=== PATIENT | female | born 1995 | race Caucasian/White ===

== ENCOUNTER 2017-05-20 11:14 | Emergency (ER) | payer BC ==
[~2017-05-20] VITALS: Ht 160 cm; Wt 60.0 kg
[~2017-05-20 11:14] MED LIST: BCPILLS PO; LISD50CA4 PO
[2017-05-20 11:19] VITALS: TEMP 36.9; Ht 160 cm; Wt 60.0 kg
[2017-05-20] MEDS ORDERED: IUD'IUD (11:45)
[2017-05-20] MEDS ORDERED: KETOROLAC TROMETHAMINE 30 MG/ML VIAL IV STA (11:49)
[2017-05-20] MEDS ORDERED: OPTIRAY 320 IV PRN (12:00)
[2017-05-20 12:09] LABS: BASO % 0.2 %; BASO ABS # 0.02 K/uL (0-0.2); COMPLETE YES; EOS % 0.3 %; HEMATOCRIT 46.6 % (37-47); IG% 0.3 %; LYMPH % 16.4 %; LYMPH ABS # 1.55 K/uL (1.2-3.4); MEAN CELL VOLUME 91.2 fL (80-100); MEAN CORPUSCULAR HEMOGLOBIN 30.3 pg (25-34); MEAN CORPUSCULAR HGB CONC 33.3 g/dl (32-36); MEAN PLATELET VOLUME 10.4 fL (7.4-10.4); MONO % 5.2 %; NEUT % 77.6 %; PLATELET COUNT 331 K/uL (130-400); RED BLOOD COUNT 5.11 M/uL (4.2-5.4); WHITE BLOOD COUNT 9.47 K/uL (4.8-10.8)
[2017-05-20 12:13] VITALS: O2SAT 100
[2017-05-20 12:17] LABS: ALT/SGPT 35 U/L (12-78); BLOOD UREA NITROGEN 12 mg/dl (7-18); CALCIUM 9.7 mg/dl (8.5-10.1); CARBON DIOXIDE 28 mmol/L (21-32); CHLORIDE 105 mmol/L (98-107); CREATININE 0.82 mg/dl (0.60-1.20); GLUCOSE 90 mg/dl (70-99); POTASSIUM 4.1 mmol/L (3.5-5.1); SODIUM 140 mmol/L (136-145)
[2017-05-20 12:20] LABS: INR 0.9 (0.9-1.1); PARTIAL THROMBOPLASTIN RATIO 1.1; PROTHROMBIN TIME (PATIENT) 10.1 SECONDS (9.0-12.0)
[2017-05-20 12:31] LABS: ALKALINE PHOSPHATASE 70 U/L (45-117); AST/SGOT 48 U/L (15-37)
--- NOTE | 2017-05-20 14:04 | DIAGNOSTIC IMAGING REPORT ---
CHEST CTA for PULMONARY ARTERIES CT DOSE: 177.82 mGy.cm HISTORY: Atypical chest pain. TECHNIQUE: Multiaxial CT images of the chest were performed following the intravenous administration of contrast to evaluate the pulmonary arteries. Maximal intensity projection images were also obtained. A dose lowering technique was utilized adhering to the principles of ALARA. COMPARISON STUDY: None. FINDINGS: Mild motion artifact. There is a normal caliber thoracic aorta with no evidence for dissection. There is no evidence for pulmonary embolus. No pleural effusions. No pneumothorax. The liver and spleen are unremarkable. No mediastinal or hilar lymphadenopathy. The central airways are patent. The lungs are clear. IMPRESSION: No evidence for pulmonary embolus. Electronically signed by: Shaun Huizar M.D. 05/20/2017 2:02 PM Dictated Date/Time: 05/20/2017 1:42 PM
--- NOTE | 2017-05-20 14:18 | EMERGENCY ROOM VISIT NOTE ---
History Report prepared by Izabel: Linda Vu Under the Supervision of: Dr. Vinayak Nuñez D.O. First contact with patient: 11:34 Chief Complaint: REFERRED BY DOCTOR Stated Complaint: BLOOD CLOT ON SIDE/ABD.-REFERRED BY [facility] History of Present Illness The patient is a 22 year old female who presents to the Emergency Room with complaints of persistent abdominal pain that began 1 week ago. She currently rates her discomfort as a 7/10 in severity. The patient states that today she presented to [facility] for right sided abdominal pain. She states that she has noticed increased pain with deep inspiration and brisk walking. The patient states that [facility] found that her d-dimer was elevated, noting that she was referred to the emergency department for further work up. She denies any increased pain with eating. The patient states that her roommate was recently sick with a cold, but denies any personal recent illness. She reports that she just had an IUD placed and states that she has been off control since September. The patient states that she had the IUD placed on April 29. She states that she has been spotting since the IUD was placed. The patient denies any shortness of breath, nausea, vomiting, or pain in swelling in her legs. She denies any family history of blood clots. The patient denies any recent long trips, surgeries, or recent injuries. Source of History: patient Onset: 1 week ago Position: abdomen Symptom Intensity: 7/10 Timing: other (persistent) Modifying Factors (Worsening): other (brisk walking and deep inspiration) Associated Symptoms: No SOB, No nausea, No vomiting Review of Systems See HPI for pertinent positives & negatives. A total of 10 systems reviewed and were otherwise negative. Past Medical & Surgical No active medical problems stated. Family History No pertinent family history stated. Social History Smoking Status: Never Smoker Alcohol Use: occasionally Drug Use: none Marital Status: single Housing Status: lives with roommate Occupation Status: [employer] Current/Historical Medications Scheduled Lisdexamfetamine Dimesylate (Vyvanse), 50 MG PO DAILY Miscellaneous Medications Iud's (Paragard Intrauterine Utility Bagger) Allergies Coded Allergies: No Known Allergies (Unverified , 05/20/17) Physical Exam Vital Signs Date Time Temp Pulse Resp B/P (MAP) Pulse Ox O2 Delivery O2 Flow Rate FiO2 05/20/17 14:57 124 16 131/79 99 05/20/17 12:42 114 16 141/89 99 Room Air 05/20/17 12:13 123 22 142/93 100 Room Air 05/20/17 12:13 100 Room Air 05/20/17 12:12 108 05/20/17 11:19 36.9 95 16 135/82 98 Physical Exam CONSTITUTIONAL/VITAL SIGNS: Reviewed / noted above. GENERAL: Non-toxic in appearance. INTEGUMENTARY: Warm, dry, and [place]. HEAD: Normocephalic. EYES: without scleral icterus or trauma. ENT/OROPHARYNX: clear and moist. LYMPHADENOPATHY/NECK: Is supple without lymphadenopathy or meningismus. RESPIRATORY: Lungs clear and equal. CARDIOVASCULAR: Regular rate and rhythm. GI/ABDOMEN: Soft and nontender. No organomegaly or pulsatile mass. No rebound or guarding. Normal bowel sounds. EXTREMITIES: Warm and well perfused. BACK: No CVA tenderness. NEUROLOGICAL: Intact without focal deficits. PSYCHIATRIC: normal affect. MUSCULOSKELETAL: Normally developed with good muscle tone. Medical Decision & Procedures ER Provider Diagnostic Interpretation: CT results as stated below per my review and radiologist interpretation: CHEST CTA for PULMONARY ARTERIES CT DOSE: 177.82 mGy.cm HISTORY: Atypical chest pain. TECHNIQUE: Multiaxial CT images of the chest were performed following the intravenous administration of contrast to evaluate the pulmonary arteries. Maximal intensity projection images were also obtained. A dose lowering technique was utilized adhering to the principles of ALARA. COMPARISON STUDY: None. FINDINGS: Mild motion artifact. There is a normal caliber thoracic aorta with no evidence for dissection. There is no evidence for pulmonary embolus. No pleural effusions. No pneumothorax. The liver and spleen are unremarkable. No mediastinal or hilar lymphadenopathy. The central airways are patent. The lungs are clear. IMPRESSION: No evidence for pulmonary embolus. Electronically signed by: Shaun Huizar M.D. 05/20/2017 2:02 PM Dictated Date/Time: 05/20/2017 1:42 PM Laboratory Results 05/20/17 11:35 Red Blood Count 5.11, Mean Corpuscular Volume 91.2, Mean Corpuscular Hemoglobin 30.3, Mean Corpuscular Hemoglobin Concent 33.3, Mean Platelet Volume 10.4, Neutrophils (%) (Auto) 77.6, Lymphocytes (%) (Auto) 16.4, Monocytes (%) (Auto) 5.2, Eosinophils (%) (Auto) 0.3, Basophils (%) (Auto) 0.2, Neutrophils # (Auto) 7.35, Lymphocytes # (Auto) 1.55, Monocytes # (Auto) 0.49, Eosinophils # (Auto) 0.03, Basophils # (Auto) 0.02 05/20/17 11:35 Test 05/20/17 11:35 White Blood Count 9.47 K/uL (4.8-10.8) Red Blood Count 5.11 M/uL (4.2-5.4) Hemoglobin 15.5 g/dL (12.0-16.0) Hematocrit 46.6 % (37-47) Mean Corpuscular Volume 91.2 fL (80-100) Mean Corpuscular Hemoglobin 30.3 pg (25-34) Mean Corpuscular Hemoglobin Concent 33.3 g/dl (32-36) Platelet Count 331 K/uL (130-400) Mean Platelet Volume 10.4 fL (7.4-10.4) Neutrophils (%) (Auto) 77.6 % Lymphocytes (%) (Auto) 16.4 % Monocytes (%) (Auto) 5.2 % Eosinophils (%) (Auto) 0.3 % Basophils (%) (Auto) 0.2 % Neutrophils # (Auto) 7.35 K/uL (1.4-6.5) Lymphocytes # (Auto) 1.55 K/uL (1.2-3.4) Monocytes # (Auto) 0.49 K/uL (0.11-0.59) Eosinophils # (Auto) 0.03 K/uL (0-0.5) Basophils # (Auto) 0.02 K/uL (0-0.2) RDW Standard Deviation 41.8 fL (36.4-46.3) RDW Coefficient of Variation 12.5 % (11.5-14.5) Immature Granulocyte % (Auto) 0.3 % Immature Granulocyte # (Auto) 0.03 K/uL (0.00-0.02) Prothrombin Time 10.1 SECONDS (9.0-12.0) Prothromb Time International Ratio 0.9 (0.9-1.1) Activated Partial Thromboplast Time 29.1 SECONDS (21.0-31.0) Partial Thromboplastin Ratio 1.1 Anion Gap 7.0 mmol/L (3-11) Est Creatinine Clear Calc Drug Dose 90.5 ml/min Estimated GFR () 119.4 Estimated GFR (Non- 103.0 BUN/Creatinine Ratio 14.0 (10-20) Calcium Level 9.7 mg/dl (8.5-10.1) Total Bilirubin 0.3 mg/dl (0.2-1) Direct Bilirubin 0.1 mg/dl (0-0.2) Aspartate Amino Transf (AST/SGOT) 48 U/L (15-37) Alanine Aminotransferase (ALT/SGPT) 35 U/L (12-78) Alkaline Phosphatase 70 U/L (45-117) Total Creatine Kinase 1219 U/L (26-192) Creatine Kinase MB 0.5 ng/ml (0.5-3.6) Creatine Kinase MB Ratio 0.0 (0-3.0) Troponin I < 0.015 ng/ml (0-0.045) Total Protein 7.9 gm/dl (6.4-8.2) Albumin 4.0 gm/dl (3.4-5.0) Lipase 177 U/L (73-393) Laboratory results as stated above per my review. Medications Administered Medications (Trade) Dose Ordered Sig/Rajeev Route Start Time Stop Time Status Last Admin Dose Admin Ketorolac Tromethamine (Toradol Inj) 30 mg NOW STAT IV 05/20/17 11:49 05/20/17 11:53 DC 05/20/17 12:43 30 MG ECG Indication: abdominal pain Rate (beats per minute): 108 Rhythm: sinus tachycardia Findings: no acute ischemic change, no ectopy ED Course 1142: Previous medical records were reviewed. The patient was evaluated in room B2. A complete history and physical examination was performed. 1149: Ordered Toradol Inj 30 mg IV. 1420: I reevaluated the patient and she is doing well. I discussed the exam findings with her and I discussed the treatment plan. She verbalized complete understanding and agreement. She is ready to go home. Medical Decision Differentials considered include acute myocardial infarction, acute coronary syndrome, myocarditis, pericarditis, pericardial effusions /tamponade, esophageal perforation, thoracic aortic dissection, pulmonary embolism, pneumonia, pneumothorax, pancreatitis, shingles, acute cholecystitis, and perforated abdominal viscus. This is a 22-year-old female who presents to the ED with a chief complaint of right upper abdominal/right lower chest wall pain. The patient states that her symptoms are worse with deep breathing. This started about a week ago after she was doing some exercises climbing stairs. The patient thought that she had a side stitch and that it would go away but it has not gone away. She has had this in the past and it has lasted up to 3 days. She states that it has never last this long. The patient reports no fevers, cough, nausea, vomiting, abdominal pains or other symptoms. She was seen at [facility] and had a d-dimer that was positive. She was referred here for this. The possible reason for her elevated d-dimer is that she had a IUD placed the end of last month and she has been having some spotting since. She was sent here for CT scan of her chest to rule out PE. Blood work reveals a normal CBC, complete metabolic panel and troponin. Total CK is elevated likely due to recent exercise. EKG shows a sinus tach at a rate of 108. CT did not show any evidence of PE or other acute abnormality. She was told results. She was given IV Toradol for pain. She was discharged. Medication Reconcilliation Current Medication List: was personally reviewed by me Blood Pressure Screening Patient's blood pressure: Elevated blood pressure Blood pressure disposition: Elevated BP felt to be situational, Did not require urgent referral Impression Primary Impression: Right-sided chest wall pain Additional Impression: Pleurisy Scribe Attestation The scribe's documentation has been prepared under my direction and personally reviewed by me in its entirety. I confirm that the note above accurately reflects all work, treatment, procedures, and medical decision making performed by me. Departure Information Dispostion Home / Self-Care Referrals No Doctor, Assigned (PCP) Forms HOME CARE DOCUMENTATION FORM, IMPORTANT VISIT INFORMATION, WORK / SCHOOL INSTRUCTIONS Patient Instructions My [facility] Additional Instructions Your symptoms are consistent with a pleurisy or a musculoskeletal cause for your pain. Take Tylenol or Motrin as needed for discomfort. Follow-up with your doctor for further care and evaluation in 1-2 days. Return to the emergency department for worsening or new symptoms or any concerns. You have been examined and treated today on an emergency basis only. This is not a substitute for, or an effort to provide, complete comprehensive medical care. It is impossible to recognize and treat all injuries or illnesses in a single emergency department visit. It is therefore important that you follow up closely with your doctor. Call as soon as possible for an appointment. Problem Qualifiers
[2017-05-20 14:57] VITALS: BP 131/79; PULSE 124; O2SAT 99
== END 2017-05-20 14:58 | disposition home or self-care (01) ==
LOC: C.EDB 11:16
DX: R07.89 Other chest pain (principal); R09.1 Pleurisy; Z97.5 Presence of (intrauterine) contraceptive device; Z79.899 Other long term (current) drug therapy

== ENCOUNTER 2017-05-28 01:21 | Emergency (ER) | payer BC ==
[~2017-05-28] VITALS: Ht 160 cm; Wt 59.1 kg
[~2017-05-28 01:21] MED LIST changes: -BCPILLS PO; +IUD'IUD
[2017-05-28 01:26] VITALS: TEMP 36.6; Ht 160 cm; Wt 59.1 kg
[2017-05-28] MEDS ORDERED: ONDANSETRON INJ 2 MG/ML 2 ML VIAL IV STA (01:44)
[2017-05-28] MEDS ORDERED: SODIUM CHLORIDE 0.9% 1000ML 1,000 ML IV ONE (01:45)
[2017-05-28 02:48] LABS: URINE APPEARANCE CLEAR (CLEAR); URINE BILIRUBIN NEG (NEG); URINE COLOR YELLOW; URINE NITRITE NEG (NEG); URINE PH 5.5 (4.5-7.5); URINE SPECIFIC GRAVITY 1.016 (1.000-1.030); UROBILINOGEN NEG (NEG); ZZUR CULT IF INDIC CLEAN CATCH NO
[2017-05-28 02:49] LABS: MANUAL MICROSCOPIC REQUIRED? NO; REVIEW REQ? NO
[2017-05-28 03:00] LABS: POTASSIUM 3.8 mmol/L (3.5-5.1)
[2017-05-28] MEDS ORDERED: OPTIRAY 320 IV PRN (03:00)
[2017-05-28 03:03] LABS: ALB/GLOB RATIO 0.8 (0.9-2); CALCIUM 9.5 mg/dl (8.5-10.1); CREATININE 0.9 mg/dl (0.60-1.20)
[2017-05-28 03:05] LABS: MAGNESIUM 2.2 mg/dl (1.8-2.4)
[2017-05-28 03:28] LABS: BASO % 0.2 %; BASO ABS # 0.02 K/uL (0-0.2); COMPLETE YES; EOS % 0.5 %; HEMATOCRIT 41.6 % (37-47); IG% 0.3 %; LYMPH % 19.2 %; LYMPH ABS # 1.67 K/uL (1.2-3.4); MEAN CELL VOLUME 89.7 fL (80-100); MEAN CORPUSCULAR HEMOGLOBIN 30.6 pg (25-34); MEAN CORPUSCULAR HGB CONC 34.1 g/dl (32-36); MEAN PLATELET VOLUME 9.9 fL (7.4-10.4); MONO % 5.9 %; NEUT % 73.9 %; PLATELET COUNT 362 K/uL (130-400); RED BLOOD COUNT 4.64 M/uL (4.2-5.4); WHITE BLOOD COUNT 8.68 K/uL (4.8-10.8)
[2017-05-28 06:00] VITALS: BP 140/85; PULSE 94; O2SAT 98
--- NOTE | 2017-05-28 07:01 | DIAGNOSTIC IMAGING REPORT ---
CT ABD/PELVIS IV AND ORAL CONT CLINICAL HISTORY: Right-sided abdominal pain COMPARISON STUDY: None. TECHNIQUE: Following the IV administration of 92 mL of Optiray-320, CT scan of the abdomen and pelvis was performed from the lung bases to the proximal femurs. Images are reviewed in the axial, sagittal, and coronal planes. IV contrast was administered without complication. A dose lowering technique was utilized adhering to the principles of ALARA. CT DOSE: 287.02 mGy.cm FINDINGS: Lower chest: The heart is normal in size and configuration, without pericardial effusion. The lung bases and pleural spaces are clear. Liver: The contrast-enhanced liver is normal in size, contour, and attenuation. There is no intrahepatic biliary ductal dilatation. The hepatic veins and portal veins are patent. Gallbladder: Unremarkable. Spleen: Normal in size and attenuation. Pancreas: Unremarkable. Adrenal glands: Unremarkable. Kidneys: There is symmetric renal cortical enhancement. The kidneys are normal in size without hydronephrosis. Bowel: There are no transition zones to indicate bowel obstruction. There is no acute diverticulitis. The appendix appears normal. Peritoneum: There is no intraperitoneal free air or abdominal ascites. Vasculature: The abdominal aorta is normal in course and caliber. Adenopathy: None. Pelvic viscera: There is an indwelling IUD. No pathologic adnexal masses are visualized. Skeletal structures: No destructive osseous lesions are seen. IMPRESSION: No acute intra-abdominal or pelvic findings. Electronically signed by: Yrn Teague M.D. 05/28/2017 7:00 AM Dictated Date/Time: 05/28/2017 6:57 AM
--- NOTE | 2017-05-28 23:08 | EMERGENCY ROOM VISIT NOTE ---
History First contact with patient: :27 Chief Complaint: ABDOMINAL PAIN Stated Complaint: UPPER RIGHT ABDOMINAL PAIN Nursing Triage Summary: Pt reports RUQ abdominal pain for 1.5 weeks. To ER and had PE scan. To [facility] and had gallballder US which was neg. Back tonight with pain. History of Present Illness The patient is a 22 year old female who presents to the Emergency Room with complaints of persistent right-sided abdominal pain for the past one to 2 weeks. Evidently the patient has been seen multiple times previously with his complaint between [facility] and here in the department. She initially had a CT scan of her chest after a positive outpatient d-dimer, which did not show evidence of PE. The patient states that her pain is intermittent and does not appear to improve or worsen with food or activity. She did have several days of relief after being seen here in the department, and has been able to exercise as usual. She states that 3 days ago the pain returned. She went to [facility] and evidently ultrasound of the gallbladder and pelvis were negative. The patient was given antibiotics for possible pelvic inflammatory disease today. She is not complaining of any pelvic discomfort. She continues with pain tonight, prompting her presentation back to the ER. She rates the discomfort a 7/10. Review of Systems More than 10 systems were reviewed and otherwise negative with the exception of history of present illness. Past Medical/Surgical History No chronic medical disease Family History No pertinent family history Social History Smoking Status: Never Smoker Alcohol Use: occasionally Drug Use: none Marital Status: single Housing Status: lives with roommate Occupation Status: [employer] student Current/Historical Medications Scheduled Lisdexamfetamine Dimesylate (Vyvanse), 50 MG PO DAILY Miscellaneous Medications Iud's (Paragard Intrauterine Lye Peel Operator) Physical Exam Vital Signs Date Time Temp Pulse Resp B/P (MAP) Pulse Ox O2 Delivery O2 Flow Rate FiO2 05/28/17 06:00 94 17 140/85 98 05/28/17 04:31 89 18 125/75 99 Room Air 05/28/17 02:30 89 16 118/75 100 Room Air 05/28/17 01:26 36.6 118 16 142/72 98 Room Air Pain Rating (0-10): 6.0 Physical Exam VITALS: Vitals are noted on the nurse's note and reviewed by myself. Vital signs stable. GENERAL: Well-developed, well-nourished, white female, who is in no acute distress and resting comfortably. Patient is cooperative with the examination. HEAD: Normocephalic atraumatic. EARS: External ear normal. External auditory canals clear, tympanic membranes pearly roldan without erythema or effusion bilaterally. EYES: Pupils equal round and reactive to light and accommodation. Conjunctivae without injection, sclerae without icterus. Extraocular movements intact. NOSE: Patent, turbinates without inflammation or discharge. MOUTH: Mucous membranes moist. Tonsils are not enlarged. Pharynx without erythema, blood, or exudate. Uvula midline. Airway patent. NECK: Supple without nuchal rigidity. No lymphadenopathy. No thyromegaly. Cervical spine is nontender. HEART: Regular rate and rhythm without murmurs gallops or rubs. LUNGS: Clear to auscultation bilaterally without wheezes, rales or rhonchi. No retractions or accessory muscle use. ABDOMEN: Positive normal bowel sounds x 4. Soft, nontender, without masses or organomegaly. No guarding or rebound tenderness. MUSCULOSKELETAL: No muscle atrophy, erythema, or edema noted. Full range of motion without joint tenderness in all extremities. Medical Decision & Procedures ER Provider Diagnostic Interpretation: CT ABD/PELVIS IV AND ORAL CONT CLINICAL HISTORY: Right-sided abdominal pain COMPARISON STUDY: None. TECHNIQUE: Following the IV administration of 92 mL of Optiray-320, CT scan of the abdomen and pelvis was performed from the lung bases to the proximal femurs. Images are reviewed in the axial, sagittal, and coronal planes. IV contrast was administered without complication. A dose lowering technique was utilized adhering to the principles of ALARA. CT DOSE: 287.02 mGy.cm FINDINGS: Lower chest: The heart is normal in size and configuration, without pericardial effusion. The lung bases and pleural spaces are clear. Liver: The contrast-enhanced liver is normal in size, contour, and attenuation. There is no intrahepatic biliary ductal dilatation. The hepatic veins and portal veins are patent. Gallbladder: Unremarkable. Spleen: Normal in size and attenuation. Pancreas: Unremarkable. Adrenal glands: Unremarkable. Kidneys: There is symmetric renal cortical enhancement. The kidneys are normal in size without hydronephrosis. Bowel: There are no transition zones to indicate bowel obstruction. There is no acute diverticulitis. The appendix appears normal. Peritoneum: There is no intraperitoneal free air or abdominal ascites. Vasculature: The abdominal aorta is normal in course and caliber. Adenopathy: None. Pelvic viscera: There is an indwelling IUD. No pathologic adnexal masses are visualized. Skeletal structures: No destructive osseous lesions are seen. IMPRESSION: No acute intra-abdominal or pelvic findings. Laboratory Results 05/28/17 02:30 Red Blood Count 4.64, Mean Corpuscular Volume 89.7, Mean Corpuscular Hemoglobin 30.6, Mean Corpuscular Hemoglobin Concent 34.1, Mean Platelet Volume 9.9, Neutrophils (%) (Auto) 73.9, Lymphocytes (%) (Auto) 19.2, Monocytes (%) (Auto) 5.9, Eosinophils (%) (Auto) 0.5, Basophils (%) (Auto) 0.2, Neutrophils # (Auto) 6.41, Lymphocytes # (Auto) 1.67, Monocytes # (Auto) 0.51, Eosinophils # (Auto) 0.04, Basophils # (Auto) 0.02 05/28/17 01:50 Test 05/28/17 01:40 05/28/17 01:44 05/28/17 01:50 05/28/17 02:30 Urine Color YELLOW Urine Appearance CLEAR (CLEAR) Urine pH 5.5 (4.5-7.5) Urine Specific Rhododendron 1.016 (1.000-1.030) Urine Protein NEG (NEG) Urine Glucose (UA) NEG (NEG) Urine Ketones TRACE (NEG) Urine Occult Blood NEG (NEG) Urine Nitrite NEG (NEG) Urine Bilirubin NEG (NEG) Urine Urobilinogen NEG (NEG) Urine Leukocyte Esterase NEG (NEG) Urine Test NEG (NEG) Anion Gap 10.0 mmol/L (3-11) Est Creatinine Clear Calc Drug Dose 82.5 ml/min Estimated GFR () 106.7 Estimated GFR (Non- 92.0 BUN/Creatinine Ratio 13.0 (10-20) Calcium Level 9.5 mg/dl (8.5-10.1) Magnesium Level 2.2 mg/dl (1.8-2.4) Total Bilirubin 0.5 mg/dl (0.2-1) Aspartate Amino Transf (AST/SGOT) 15 U/L (15-37) Alanine Aminotransferase (ALT/SGPT) 24 U/L (12-78) Alkaline Phosphatase 65 U/L (45-117) Total Protein 8.6 gm/dl (6.4-8.2) Albumin 3.9 gm/dl (3.4-5.0) Globulin 4.7 gm/dl (2.5-4.0) Albumin/Globulin Ratio 0.8 (0.9-2) Lipase 154 U/L (73-393) White Blood Count 8.68 K/uL (4.8-10.8) Red Blood Count 4.64 M/uL (4.2-5.4) Hemoglobin 14.2 g/dL (12.0-16.0) Hematocrit 41.6 % (37-47) Mean Corpuscular Volume 89.7 fL (80-100) Mean Corpuscular Hemoglobin 30.6 pg (25-34) Mean Corpuscular Hemoglobin Concent 34.1 g/dl (32-36) Platelet Count 362 K/uL (130-400) Mean Platelet Volume 9.9 fL (7.4-10.4) Neutrophils (%) (Auto) 73.9 % Lymphocytes (%) (Auto) 19.2 % Monocytes (%) (Auto) 5.9 % Eosinophils (%) (Auto) 0.5 % Basophils (%) (Auto) 0.2 % Neutrophils # (Auto) 6.41 K/uL (1.4-6.5) Lymphocytes # (Auto) 1.67 K/uL (1.2-3.4) Monocytes # (Auto) 0.51 K/uL (0.11-0.59) Eosinophils # (Auto) 0.04 K/uL (0-0.5) Basophils # (Auto) 0.02 K/uL (0-0.2) RDW Standard Deviation 41.4 fL (36.4-46.3) RDW Coefficient of Variation 12.7 % (11.5-14.5) Immature Granulocyte % (Auto) 0.3 % Immature Granulocyte # (Auto) 0.03 K/uL (0.00-0.02) Medications Administered Medications (Trade) Dose Ordered Sig/Rajeev Route Start Time Stop Time Status Last Admin Dose Admin Sodium Chloride 1,000 ml @ 999 mls/hr Q1H1M ONCE IV 05/28/17 01:45 05/28/17 02:45 DC 9/13/17 02:28 999 MLS/HR Ondansetron HCl (Zofran Inj) 4 mg NOW STAT IV 05/28/17 01:44 05/28/17 01:46 DC 05/28/17 02:29 4 MG ED Course Physical exam and history were performed. Nursing notes, EMR, and Medication List were personally reviewed. Patient appears to have vague right-sided abdominal pain for the past one to 2 weeks. The patient is not toxic and does not have significant tenderness on examination. I discussed options of care with the patient, and elected to perform a CT scan of the abdomen and pelvis as this has not yet occurred. The patient was hydrated with normal saline. IV access was established and labs were obtained. The patient's blood work is as above and was reviewed. She does not have a significantly elevated white blood cell count, gross anemia, bandemia, or significant electrolyte imbalance. Lipase and transaminases are nondiagnostic. CT scan does not show acute emergent process. The patient remained in stable condition throughout her emergency department stay. She did not have any worsening of her discomfort while here. Overall the patient appears stable for discharge from the emergency department. Her symptoms certainly may represent a gastric etiology, and she may benefit from EGD. There is also concerned that this could be gallbladder disease, and she may benefit from outpatient HIDA scan. I discussed these at length with the patient and feel that she should follow-up with [facility] or GI. She was certainly invited back to the ER with any new, worsening, or concerning symptoms. The chart was completed utilizing [employer] Speech Voice Recognition Software. Grammatical errors, random word insertions, pronoun errors, and incomplete sentences are an occasional consequence of this system due to software limitations, ambient noise, and hardware issues. Any formal questions or concerns about the content, text, or information contained within the body of this dictation should be directly addressed to the provider for clarification. . Medical Decision Differential diagnosis: Etiologies such as appendicitis, diverticulitis, PUD, biliary pathology, UTI, pancreatitis, obstruction, mesenteric ischemia, aortic pathology, infections, inflammatory bowel disease, renal colic, as well as others were entertained. Impression Primary Impression: Abdominal pain Departure Information Dispostion Home / Self-Care Condition GOOD Forms HOME CARE DOCUMENTATION FORM, IMPORTANT VISIT INFORMATION Patient Instructions My [facility] Additional Instructions You were seen and evaluated today on an emergency basis only. This is not a substitute for, or an effort to provide, complete comprehensive medical care. It is not possible to recognize and treat all injuries or illnesses in a single emergency department visit. For this reason it is recommended that you followup with gastroenterology, Dr. Killian's office, for ongoing care and evaluation. You may wish to establish GI services back home. Consider an [id number] omeprazole/Prilosec for your symptoms. You are welcome to return to the emergency department anytime with new, worsening, or concerning symptoms.
== END 2017-05-28 06:00 | disposition home or self-care (01) ==
LOC: C.EDB 01:21
DX: R10.9 Unspecified abdominal pain (principal); Z97.5 Presence of (intrauterine) contraceptive device; Z79.899 Other long term (current) drug therapy